=== PATIENT | male | born 1980 | race Caucasian/White ===

== ENCOUNTER 2022-09-27 02:24 | Emergency (ER) | payer SELFPAY ==
[~2022-09-27] VITALS: Ht 167.6 cm; Wt 93.0 kg
[2022-09-27 02:36] VITALS: BP_SYST 140
--- NOTE | 2022-09-27 02:41 | NUR ---
Patient to ER bed 06 to gown for evaluation. Side rails up. Report given to AIDAN CACERES.
--- NOTE | 2022-09-27 03:01 | NUR ---
ER Dr. Paris at bedside examining patient.
[2022-09-27 03:05] LABS: BASOPHILS # (AUTO) 0.1 K/uL (0.0-0.2); EOSINOPHILS # (AUTO) 0.3 K/uL (0.0-0.4); EOSINOPHILS % (AUTO) 4.7 % (0.0-4.0); HEMOGLOBIN 13.6 g/dL (14.0-18.0); LYMPHOCYTES # (AUTO) 1.7 K/uL (1.0-5.5); LYMPHOCYTES % (AUTO) 30.8 % (20.5-51.5); MEAN CORPUSCULAR HEMOGLOBIN 32 pg (27-31); MEAN CORPUSCULAR HGB CONC 35 % (32-36); MEAN CORPUSCULAR VOLUME 91 fL (79.0-98.0); MONOCYTES # (AUTO) 0.4 K/uL (0.0-1.0); MONOCYTES % (AUTO) 6.9 % (1.7-9.3); NEUTROPHILS # (AUTO) 3.2 K/uL (1.8-7.7); NEUTROPHILS % (AUTO) 56.6 % (40.0-70.0); PLATELET COUNT (AUTO) 273 K/uL (130-430); RED BLOOD CELL COUNT(AUTO) 4.27 MIL/uL (4.2-6.2); RED CELL DISTRIBUTION WIDTH 13.7 % (9.0-15.0); WHITE BLOOD COUNT (AUTO) 5.7 K/uL (4.8-10.8)
[2022-09-27] MEDS ORDERED: GLYC30DR4 EACH EYE (03:08)
[2022-09-27 03:20] LABS: CALCIUM 8.6 mg/dL (8.4-11.0); CREATININE 1.13 mg/dL (0.55-1.30)
[2022-09-27 03:25] LABS: ALBUMIN 3.6 g/dL (3.4-4.8); TOTAL BILIRUBIN 0.4 mg/dL (0.0-1.0)
[2022-09-27 03:47] VITALS: BP_SYST 116
--- NOTE | 2022-09-27 03:48 | NUR ---
Patient given written and verbal discharge instructions and verbalizes understanding. ER MD discussed with patient the results and treatment provided. Patient in stable condition. ID arm band removed. Rx of GLYCERIN/PROPYLENE GLYCOL given. Patient educated on pain management and to follow up with PMD. Pain Scale 0/10. Opportunity for questions provided and answered. Medication side effect fact sheet provided.
== END 2022-09-27 03:47 | disposition home or self-care (01) ==
LOC: SED 02:24
DX: R51.9 Headache, unspecified (principal); R07.0 Pain in throat; H57.89 Other specified disorders of eye and adnexa; R09.89 Other specified symptoms and signs involving the circulatory and respiratory systems; Z88.5 Allergy status to narcotic agent; Z79.899 Other long term (current) drug therapy
CPT/HCPCS: 80053; 85025; 99283